=== PATIENT | female | born 1935 | race Hispanic/Latino ===

== ENCOUNTER 2016-09-18 06:34 | Day surgery (SDC) | payer MEDICARE, OTHER ==
[2016-09-10 10:06] VITALS: BMI 26.2
[2016-09-18] MEDS ORDERED: Propofol 10 mg/ml Inj (20 ML) ONE (08:10)
[2016-09-18] MEDS ORDERED: Lidocaine 2% Inj (20ml) ONE (08:31)
[2016-09-18] MEDS ORDERED: ePHEDrine 50 mg/ml Inj ONE (08:32)
[2016-09-18] MEDS ORDERED: Lactated Ringer's 1,000 ML IV SCH (09:00)
[2016-09-18 09:03] VITALS: RESP 16; TEMP 97.5
[2016-09-18 09:43] VITALS: BP 121/61; PULSE 67; O2SAT 98
== END 2016-09-18 10:31 | disposition home or self-care (01) ==
LOC: ENDO 06:34
PROVIDERS: ATTEND Specialist
DX: K57.30 Diverticulosis of large intestine without perforation or abscess without bleeding (principal); K64.8 Other hemorrhoids; Z98.0 Intestinal bypass and anastomosis status
CPT/HCPCS: 45378; J2704; J7040; J7120